=== PATIENT | male | born 2000 | race Hispanic/Latino ===

== ENCOUNTER 2021-03-07 09:54 | Emergency (ER) ==
[2021-03-07 21:34] LABS: SARS-CoV-2 PCR by NAA Not Detected (NotDetected)
== END 2021-03-07 11:14 | disposition home or self-care (01) ==
LOC: MADERS 09:54
DX: J02.0 Streptococcal pharyngitis (principal); Z20.822 Contact with and (suspected) exposure to COVID-19; F17.210 Nicotine dependence, cigarettes, uncomplicated
CPT/HCPCS: 99283; U0003; U0005

== ENCOUNTER 2025-06-02 20:40 | Emergency (ER) | payer SELFPAY ==
[2025-06-02] MEDS ORDERED: Acetaminophen 325 MG TAB ONE (21:29)
[2025-06-02] MEDS ORDERED: Ibuprofen 800 MG TAB ONE (22:05)
[2025-06-02] MEDS ORDERED: HYDROcodone/Acetaminophen 5/325 mg Tablet ONE (22:05)
== END 2025-06-02 22:17 | disposition home or self-care (01) ==
LOC: MADERS 20:40
DX: S02.2XXA Fracture of nasal bones, initial encounter for closed fracture (principal); F17.210 Nicotine dependence, cigarettes, uncomplicated; Z75.8 Other problems related to medical facilities and other health care; Y04.2XXA Assault by strike against or bumped into by another person, initial encounter
CPT/HCPCS: 70450; 70486; 71111; 72125